=== PATIENT | female | born 1980 | race Caucasian/White ===

== ENCOUNTER 2018-04-30 10:57 | Observation (INO) ==
[2018-04-30 11:03] VITALS: O2SAT 100
--- NOTE | 2018-04-30 11:56 | ED ---
History of Present Illness Primary Care Physician: No Primary Care Physician Chief Complaint: abdominal pain and nausea History of Present Illness: 38 yo at 20 weeks who presents with abdominal pain and nausea. Patient just moved to the area from [place]. She reports that she has a history of pancreatitis and pyelonephritis in which she was hospitalized 1.5 months ago. She has not seen an OB provider since that hospitalization. She reports current alcohol use, denies drug use. She reports abdominal bloating, epigastric pain, frequent loose stools. She denies vaginal bleeding, leakage of fluid, contractions. She denies vaginal itching, dysuria. PMH: pancreatitis, pyelonephritis, alcohol abuse PSH: appendectomy, cholecystectomy Medications: pre- vitamins, ferrous sulfate Allergies: penicillin (rxn= throat swelling) Weeks Gestation:: 20 Para: 3 : 4 Review of Systems All other systems reviewed negative except as stated in HPI [facility] - History History Provided By: Patient - Social History I have reviewed the patient's Social History: Yes Medications and Allergies Active Medications: Active Medications Lactated Ringer's (Lr 1000 Ml Inj) 1,000 mls @ 0 mls/hr IV.SIG BOLUS ONE Stop: 04/30/18 11:52 Ondansetron HCl (Zofran Odt) 8 mg PO ONCE ONE Stop: 04/30/18 11:52 Allergies Allergy/AdvReac Type Severity Reaction Status Date / Time penicillin G Allergy Anaphylaxis Verified 04/30/18 11:47 Exam Vital signs: Vital Signs 04/30/18 11:03 Temperature 98.3 F Pulse Rate 102 H Respiratory Rate 20 Blood Pressure 163/75 H Pulse Oximetry 100 Intake & Output 04/29/18 04/30/18 04/30/18 18:59 06:59 18:59 Weight 59.874 kg Narrative: GENERAL: older than stated age, well-developed patient. SKIN: Warm and dry. HEAD: Normocephalic and atraumatic. EYES: No scleral icterus. No injection or drainage. ENT: No nasal drainage noted. Mucous membranes pink. Airway patent. NECK: Supple, trachea midline. No JVD. CARDIOVASCULAR: Regular rate and rhythm without murmurs, gallops, or rubs. RESPIRATORY: Breath sounds equal bilaterally. No accessory muscle use. ABDOMEN/GI: Abdomen soft, mid epigastric tenderness, CVA tenderness, bowel sounds present, no rebound, no guarding Gravid to 20 weeks size FHT's: 150s EXTREMITIES: No cyanosis or edema. BACK: Nontender without obvious deformity. No CVA tenderness. NEUROLOGICAL: Awake and alert. Normal speech. Results - Labs CBC & Chem 7: 04/30/18 12:15 04/30/18 12:15 Assessment and Plan - Diagnosis (1) Abdominal pain affecting Code(s): O26.899 - Other specified related conditions, unspecified trimester; R10.9 - Unspecified abdominal pain Status: Acute (2) History of pyelonephritis during Code(s): Z87.59 - Personal history of other complications of , childbirth and the puerperium; Z87.440 - Personal history of urinary (tract) infections Status: Acute (3) History of pancreatitis Code(s): Z87.19 - Personal history of other diseases of the digestive system Status: Acute - Plan 38 yo at 20 weeks with a recent history of pancreatitis and pyelonephritis who presents with abdominal pain, abdominal bloating, and nausea. FHT 150s. This is likely pancreatitis and pyelonephritis. -Amylase/Lipase- amylase slightly elevated at 141 and lipase WNL -CMP- mild hypokalemic at 3.3 -CBC- WNL -Urine analysis and culture -Urine drug screen -Alcohol level- less than 3 - panel -Limited OB US for EFW and JAMA -Admit to observation Medications - 1000 ml LR X 2 bolus - 8 mg Zofran ODT - 1000 mg IV acetaminophen Discharge Plan - Discharge Disposition Patient Disposition: 30 Still Patient - Discharge Condition Condition: Stable - Physicians Team ED Provider: Umm Fletcher Primary Care Provider: Primary Care Sarahi Lindsey - Rxs /Orders / Referrals /Forms Referrals: Primary Care Sarahi Lindsey [Primary Care Provider] - See Instructions - Discharge Instructions Print Language: Romansh
[2018-04-30 12:54] LABS: Hematocrit 36.6 % (35.0-46.0); Mean Corpuscular HGB Conc 32.8 % (32.0-36.0); Mean Corpuscular Hemoglobin 29.3 pg (27.0-34.0); Mean Corpuscular Volume 89.4 fL (80.0-100.0); Mean Platelet Volume 9.1 fL (7.0-11.0); Platelet Count 274 th/mm3 (150-450); Red Cell Distribution Width 16.2 % (11.6-17.2); White Blood Count 10.9 th/mm3 (4.0-11.0)
--- NOTE | 2018-04-30 13:07 | ED ---
History of Present Illness Primary Care Physician: No Primary Care Physician Chief Complaint: abdominal pain and nausea History of Present Illness: 38-year-old at 20 weeks. Presents complaining of midepigastric pain and low back pain. No care. Reports that she was seen in [place] about 1 month ago admitted times 12 days for pancreatitis and pyelonephritis history of alcohol use recent use admitted yesterday also history of delivery x1. Weeks Gestation:: 20 Para: 3 : 4 Review of Systems Constitutional: Reports weakness, Denies weight loss Eyes: Denies blind spots Ears, Nose, Mouth, and Throat: Denies difficulty swallowing Cardiovascular: Denies chest pain Gastrointestinal: Reports abdominal pain, Denies bright, red blood in stools, Denies change in bowel habits, Denies vomiting blood Genitourinary: Reports other (Low back pain), Denies abnormal vaginal bleeding Musculoskeletal: Denies back pain, Denies joint pain PMFSH - History History Provided By: Patient - Social History I have reviewed the patient's Social History: Yes - Alcohol History How Often Do You Have a Drink Containing Alcohol: Unable to Obtain (Positive for alcohol use however unable to obtain frequency) Medications and Allergies Active Medications: Active Medications Ondansetron HCl 8 mg/ Dextrose 54 mls @ 216 mls/hr IV.SIG Q6H PRN PRN Reason: NAUSEA OR VOMITING Allergies Allergy/AdvReac Type Severity Reaction Status Date / Time penicillin G Allergy Anaphylaxis Verified 04/30/18 11:47 Exam Vital signs: Vital Signs 04/30/18 11:03 04/30/18 11:37 04/30/18 11:45 Temperature 98.3 F 98.7 F Pulse Rate 102 H 106 H Respiratory Rate 20 18 Blood Pressure 163/75 H 141/86 H Pulse Oximetry 100 Intake & Output 04/29/18 04/30/18 04/30/18 18:59 06:59 18:59 Weight 59.874 kg - Constitutional mild distress, moderate distress - Routine HEENT Exam Head: Present: normocephalic Eye: Present: PERRL ENT: Present: mucous membranes moist - Routine Neck Exam Present: supple - Routine Chest/Breast/Axilla Exam Chest wall: Absent: tenderness - Routine Respiratory Exam Present: CTA bilaterally - Routine Cardiovascular Exam Present: RRR - Routine Abdominal Exam Present: soft, tenderness (Midepigastric tenderness positive for CVA tenderness right side) - Routine Extremities Exam Absent: cyanosis, calf tenderness, pallor - Routine Skin Exam Present: intact - Routine Neurological Exam Present: alert, oriented X3 Results - Labs CBC & Chem 7: 04/30/18 12:15 04/30/18 12:15 Labs: Laboratory Results - last 24 hr 04/30/18 12:15 WBC 10.9 RBC 4.10 Hgb 12.0 Hct 36.6 MCV 89.4 MCH 29.3 MCHC 32.8 RDW 16.2 Plt Count 274 MPV 9.1 Assessment and Plan - Diagnosis (1) Abdominal pain affecting Code(s): O26.899 - Other specified related conditions, unspecified trimester; R10.9 - Unspecified abdominal pain Status: Acute (2) History of pancreatitis Code(s): Z87.19 - Status: Acute (3) History of pyelonephritis during Code(s): Z87.59 - ; Z87.440 - Status: Acute (4) 20 weeks gestation of Code(s): Z3A.20 - Status: Acute Discharge Plan - Physicians Team ED Provider: Umm Fletcher Primary Care Provider: Primary Care César,No - Discharge Instructions Print Language: Kinyarwanda
[2018-04-30 13:09] LABS: Alanine Aminotransferase 21 U/L (10-53); Anion Gap 11 meq/L (5-15); Aspartate Aminotransferase 21 U/L (15-37); Blood Urea Nitrogen 9 mg/dL (7-18); Calcium 8.2 mg/dL (8.5-10.1); Carbon Dioxide 23.7 meq/L (21.0-32.0); Chloride 107 meq/L (98-107); Glomerular Filtration Rate Greater Than 89 mL/min (>89); Glucose,Random 81 mg/dL (74-106); Lipase 128 U/L (73-393); Potassium 3.3 meq/L (3.5-5.1); Sodium 142 meq/L (136-145)
[2018-04-30 13:11] LABS: Alkaline Phosphatase 77 U/L (45-117); Amylase 141 U/L (25-115); Total Protein 7.6 g/dL (6.4-8.2)
[2018-04-30 13:35] LABS: Hepatitits B Surface Antigen Nonreactive (Nonreactive)
[2018-04-30 14:01] LABS: Hepatitis A IgM Antibody Nonreactive (Nonreactive)
[2018-04-30 15:42] LABS: Bacteria,Urine Occasional /hpf; Bilirubin,Urine Negative (Negative); Color,Urine Yellow (Yellw/Straw); Glucose,Urine (UA) Negative (Negative); Hyaline Casts,Urine 1 /lpf (0-3); Leukocyte Esterase,Urine Small (Negative); Mucus,Urine Few /lpf (Occasional); Nitrite,Urine Negative (Negative); Specific Gravity,Urine 1.021 (1.002-1.035); Squamous Epithelial Cell,Urine 16 /hpf (0-5)
[2018-04-30] MEDS ORDERED: Citric Acid/Sodium Citrate Liq 30 ML UDC PO SCH (15:45)
--- NOTE | 2018-04-30 15:46 | P.OBGPN ---
OB - ED Note Patient Name: Tiara Portillo Date of : 78 Patient Status: Emergency Emergency Provider: Umm Fletcher Date: 04/30/18 11:54 Initialization Date: 04/30/18 11:54 History of Present Illness Primary Care Physician: No Primary Care Physician Chief Complaint: abdominal pain and nausea History of Present Illness: 38 yo at 20 weeks who presents with abdominal pain and nausea. Patient just moved to the area from [place]. She reports that she has a history of pancreatitis and pyelonephritis in which she was hospitalized 1.5 months ago. She has not seen an OB provider since that hospitalization. She reports current alcohol use, denies drug use. She reports abdominal bloating, epigastric pain, frequent loose stools. She denies vaginal bleeding, leakage of fluid, contractions. She denies vaginal itching, dysuria. PMH: pancreatitis, pyelonephritis, alcohol abuse PSH: appendectomy, cholecystectomy Medications: pre-marisa vitamins, ferrous sulfate Allergies: penicillin (rxn= throat swelling) Weeks Gestation:: 20 Para: 3 : 4 Review of Systems All other systems reviewed negative except as stated in HPI PMFSH - History History Provided By: Patient - Social History I have reviewed the patient's Social History: Yes Medications and Allergies Active Medications: Active Medications Lactated Ringer's (Lr 1000 Ml Inj) 1,000 mls @ 0 mls/hr IV.SIG BOLUS ONE Stop: 04/30/18 11:52 Ondansetron HCl (Zofran Odt) 8 mg PO ONCE ONE Stop: 04/30/18 11:52 Allergies Allergy/AdvReac Type Severity Reaction Status Date / Time penicillin G Allergy Anaphylaxis Verified 04/30/18 11:47 Exam Vital signs: Vital Signs 04/30/18 11:03 Temperature 98.3 F Pulse Rate 102 H Respiratory Rate 20 Blood Pressure 163/75 H Pulse Oximetry 100 Intake & Output 04/29/18 04/30/18 04/30/18 18:59 06:59 18:59 Weight 59.874 kg Narrative: GENERAL: older than stated age, well-developed patient. SKIN: Warm and dry. HEAD: Normocephalic and atraumatic. EYES: No scleral icterus. No injection or drainage. ENT: No nasal drainage noted. Mucous membranes pink. Airway patent. NECK: Supple, trachea midline. No JVD. CARDIOVASCULAR: Regular rate and rhythm without murmurs, gallops, or rubs. RESPIRATORY: Breath sounds equal bilaterally. No accessory muscle use. ABDOMEN/GI: Abdomen soft, mid epigastric tenderness, CVA tenderness, bowel sounds present, no rebound, no guarding Gravid to 20 weeks size FHT's: 150s EXTREMITIES: No cyanosis or edema. BACK: Nontender without obvious deformity. No CVA tenderness. NEUROLOGICAL: Awake and alert. Normal speech. Results - Labs CBC & Chem 7: 04/30/18 12:15 04/30/18 12:15 Assessment and Plan - Diagnosis (1) Abdominal pain affecting Code(s): O26.899 - Other specified related conditions, unspecified trimester; R10.9 - Unspecified abdominal pain Status: Acute (2) History of pyelonephritis during Code(s): Z87.59 - Personal history of other complications of , childbirth and the puerperium; Z87.440 - Personal history of urinary (tract) infections Status: Acute (3) History of pancreatitis Code(s): Z87.19 - Personal history of other diseases of the digestive system Status: Acute - Plan 38 yo at 20 weeks with a recent history of pancreatitis and pyelonephritis who presents with abdominal pain, abdominal bloating, and nausea. FHT 150s. Patient will be admitted for pyelonephritis and fluid resuscitation. OB ED Course -Amylase/Lipase- amylase slightly elevated at 141 and lipase WNL -CMP- mild hypokalemic at 3.3 -CBC- WNL -Urine culture- PENDING -Urine drug screen- PENDING -Alcohol level- less than 3 - panel -Limited OB US for EFW and JAMA Admit to observation- Patient has continued nausea and pain so patient will be managed as observation with IV abx for probable pyelonephritis and fluid resuscitation. -NPO diet -FHT daily during admission Medications -LR at 125 ml/hour -50 mg benadryl Q6H -ondansetron 8mg Q6h -1000 mg IV acetaminophen Q6H -Ampicillin 2000 mg Q8H -Gentamicin 80 mg Q8H Discharge Plan - Discharge Disposition Patient Disposition: 30 Still Patient - Discharge Condition Condition: Stable - Physicians Team ED Provider: Umm Fletcher Primary Care Provider: Primary Care Sarahi Lindsey - Rxs /Orders / Referrals /Forms Referrals: Primary Care Sarahi Lindsey [Primary Care Provider] - See Instructions - Discharge Instructions Print Language: Latvian
[2018-04-30 15:48] LABS: Clarity,Urine Hazy (Clear)
[2018-04-30] MEDS: Gentamicin/NS 80 mg Premix 100 ML IV.SIG SCH ×2 (16:25→23:03)
[2018-04-30 17:50] LABS: Amphetamine Screen,Urine Neg (Neg); Barbiturate Screen,Urine Neg (Neg); Cannabinoid Screen,Urine Neg (Neg); Cocaine Screen,Urine Neg (Neg)
[2018-04-30 18:06] LABS: Opiate Screen,Urine Neg (Neg)
--- NOTE | 2018-04-30 18:14 | P.HPOB ---
History of Present Illness Primary Care Physician: No Primary Care Physician Chief Complaint: abdominal pain and nausea History of Present Illness: This is a 38-year-old at 20+ weeks gestation who presents today complaining of midepigastric pain and right low back pain. care is limited last visit was in [place] however this was an admission treated for pancreatitis and pyelonephritis. Patient reports that she was in the hospital for 12 days. Admits to recent use of alcohol yesterday also history of delivery. Weeks Gestation:: 20 Para: 3 : 4 Review of Systems Constitutional: Reports body ache(s) Eyes: Denies blind spots Ears, Nose, Mouth, and Throat: Denies difficulty swallowing Cardiovascular: Denies chest pain Respiratory: Denies wheezing Gastrointestinal: Reports abdominal pain (Midepigastric and right low back pain) Genitourinary: Denies abnormal vaginal bleeding, Denies vaginal odor, Denies vaginal itching PMFSH - History History Provided By: Patient - Alcohol History How Often Do You Have a Drink Containing Alcohol: Unable to Obtain (Positive for alcohol use however unable to obtain frequency) Medications and Allergies Active Medications: Active Medications Diphenhydramine HCl (Benadryl Inj) 50 mg IV.PUSH Q6H PRN PRN Reason: Nausea/pain Last Admin: 04/30/18 16:25 Dose: 50 mg Ondansetron HCl 8 mg/ Dextrose 54 mls @ 216 mls/hr IV.SIG Q6H PRN PRN Reason: NAUSEA OR VOMITING Lactated Ringer's (Lr 1000 Ml Inj) 1,000 mls @ 125 mls/hr IV.CONT .Q8H IKE Last Admin: 04/30/18 17:07 Dose: Not Given Ampicillin Sodium 2,000 mg/ (Sodium Chloride) 100 mls @ 400 mls/hr IV.SIG Q6H IKE Last Admin: 04/30/18 17:21 Dose: 400 mls/hr Gentamicin Sulfate/Sodium Chloride (Gentamicin/Ns 80 Mg Premix) 100 mls @ 200 mls/hr IV.SIG Q8H IKE Last Infusion: 04/30/18 17:05 Dose: 200 mls/hr Acetaminophen (Ofirmev Inj) 1,000 mg in 100 mls @ 400 mls/hr IV.SIG Q6H PRN PRN Reason: PAIN SCALE 1 TO 10 Ibuprofen (Motrin) 600 mg PO Q6H PRN PRN Reason: Acute Pain Allergies Allergy/AdvReac Type Severity Reaction Status Date / Time penicillin G Allergy Anaphylaxis Verified 04/30/18 11:47 Home Medications Medication Instructions Recorded Confirmed Type ferrous sulfate [iron] 325 mg PO DAILY 04/30/18 04/30/18 History [id number] acid 1 tab PO DAILY 04/30/18 04/30/18 History [PreNata] Exam Vital signs: Vital Signs 04/30/18 11:03 04/30/18 11:37 04/30/18 11:45 Temperature 98.3 F 98.7 F Pulse Rate 102 H 106 H Respiratory Rate 20 18 Blood Pressure 163/75 H 141/86 H Pulse Oximetry 100 Intake & Output 04/29/18 04/30/18 04/30/18 18:59 06:59 18:59 Intake Total 1100 / 1100 Balance 1100 / 1100 Weight 59.874 kg Intake: IV 1100 / 1100 Ofirmev Inj 1,000 mg In 100 ml 100 / 100 @ 400 mls/hr IV.SIG ONCE ONE Rx #:[id number] Gentamicin/NS 80 mg Premix 100 0 / 0 ML @ 200 mls/hr IV.SIG Q8H IKE Rx#:[id number] LR 1000 mL Inj 1,000 ML @ 3000 1000 / 1000 mls/hr IV.SIG UNSCH PRN Rx#: [id number] - Constitutional mild distress, moderate distress - Routine HEENT Exam Head: Present: normocephalic Eye: Present: PERRL ENT: Present: mucous membranes moist - Routine Neck Exam Present: supple - Routine Chest/Breast/Axilla Exam Chest wall: Absent: tenderness Breast: Absent: tenderness Axillae: Absent: lymphadenopathy - Routine Respiratory Exam Present: CTA bilaterally - Routine Cardiovascular Exam Present: RRR - Routine Abdominal Exam Present: soft, tenderness (No midepigastric tenderness however right CVA tenderness is appreciated) - Routine Skin Exam Present: intact - Routine Neurological Exam Present: alert, oriented X3 Results - Labs CBC & Chem 7: 04/30/18 12:15 04/30/18 12:15 Labs: Laboratory Results - last 24 hr 04/30/18 04/30/18 04/30/18 11:36 11:36 11:36 WBC RBC Hgb Hct MCV MCH MCHC RDW Plt Count MPV Sodium Potassium Chloride Carbon Dioxide Anion Gap BUN Creatinine Estimated GFR Random Glucose Calcium Total Bilirubin AST ALT Alkaline Phosphatase Total Protein Albumin Amylase Lipase Urine Color Yellow Urine Clarity Hazy H Urine pH 6.0 Ur Specific Weston 1.021 Urine Protein 100 H Urine Glucose (UA) Negative Urine Ketones 20 Urine Occult Blood Negative Urine Nitrate Negative Urine Bilirubin Negative Urine Urobilinogen Less than 2 Ur Leukocyte Esterase Small H Urine RBC 2 Urine WBC 12 H Ur Squamous Epith Cells 16 Urine Bacteria Occasional H Hyaline Casts 1 Urine Mucus Few H Micro UA Comment Culture indicated Ur Microscopic Review Not Reportable Urine Culture Comments Culture indicated Urine Opiates Screen Neg Ur Barbiturates Screen Neg Ur Amphetamines Screen Neg U Benzodiazepines Scrn Neg Urine Cocaine Screen Neg U Cannabinoids Screen Neg Serum Alcohol Chlam trachomat DNA PCR Not detected Hepatitis A IgM Ab Hep Bs Antigen Hep B Core IgM Ab Hep C IgG Ab HIV 1&2 Ab/P24 Ag 4thGn N.gonorrhoeae DNA (PCR) Not detected Rubella Immunity Screen Rubella Ab, Quant Blood Type Blood Type Recheck Antibody Screen 04/30/18 04/30/18 04/30/18 12:15 12:15 12:15 WBC 10.9 RBC 4.10 Hgb 12.0 Hct 36.6 MCV 89.4 MCH 29.3 MCHC 32.8 RDW 16.2 Plt Count 274 MPV 9.1 Sodium 142 Potassium 3.3 L Chloride 107 Carbon Dioxide 23.7 Anion Gap 11 BUN 9 Creatinine 0.61 Estimated GFR Greater than 89 Random Glucose 81 Calcium 8.2 L Total Bilirubin 0.5 AST 21 ALT 21 Alkaline Phosphatase 77 Total Protein 7.6 Albumin 3.0 L Amylase 141 H Lipase 128 Urine Color Urine Clarity Urine pH Ur Specific Weston Urine Protein Urine Glucose (UA) Urine Ketones Urine Occult Blood Urine Nitrate Urine Bilirubin Urine Urobilinogen Ur Leukocyte Esterase Urine RBC Urine WBC Ur Squamous Epith Cells Urine Bacteria Hyaline Casts Urine Mucus Micro UA Comment Ur Microscopic Review Urine Culture Comments Urine Opiates Screen Ur Barbiturates Screen Ur Amphetamines Screen U Benzodiazepines Scrn Urine Cocaine Screen U Cannabinoids Screen Serum Alcohol Less than 3 Chlam trachomat DNA PCR Hepatitis A IgM Ab Hep Bs Antigen Hep B Core IgM Ab Hep C IgG Ab HIV 1&2 Ab/P24 Ag 4thGn N.gonorrhoeae DNA (PCR) Rubella Immunity Screen Immune Rubella Ab, Quant 440.3 Blood Type Blood Type Recheck Antibody Screen 04/30/18 04/30/18 12:15 12:15 WBC RBC Hgb Hct MCV MCH MCHC RDW Plt Count MPV Sodium Potassium Chloride Carbon Dioxide Anion Gap BUN Creatinine Estimated GFR Random Glucose Calcium Total Bilirubin AST ALT Alkaline Phosphatase Total Protein Albumin Amylase Lipase Urine Color Urine Clarity Urine pH Ur Specific Weston Urine Protein Urine Glucose (UA) Urine Ketones Urine Occult Blood Urine Nitrate Urine Bilirubin Urine Urobilinogen Ur Leukocyte Esterase Urine RBC Urine WBC Ur Squamous Epith Cells Urine Bacteria Hyaline Casts Urine Mucus Micro UA Comment Ur Microscopic Review Urine Culture Comments Urine Opiates Screen Ur Barbiturates Screen Ur Amphetamines Screen U Benzodiazepines Scrn Urine Cocaine Screen U Cannabinoids Screen Serum Alcohol Chlam trachomat DNA PCR Hepatitis A IgM Ab Nonreactive Hep Bs Antigen Nonreactive Hep B Core IgM Ab Nonreactive Hep C IgG Ab Nonreactive HIV 1&2 Ab/P24 Ag 4thGn Nonreactive N.gonorrhoeae DNA (PCR) Rubella Immunity Screen Rubella Ab, Quant Blood Type A Negative Blood Type Recheck Required Antibody Screen Negative Caprini VTE Risk Assessment Caprini VTE Risk Assessment: No/Low Risk (score <= 1) Caprini Risk Assessment Model: Point Value = 1 Point Value = 2 Point Value = 3 Point Value = 5 Age 41-60 Minor surgery BMI > 25 kg/m2 Swollen legs Varicose veins or History of unexplained or recurrent spontaneous Oral contraceptives or hormone replacement Sepsis (< 1 month) Serious lung disease, including pneumonia (< 1 month) Abnormal pulmonary function Acute myocardial infarction Congestive heart failure (< 1 month) History of inflammatory bowel disease Medical patient at bed rest Age 61-74 Arthroscopic surgery Major open surgery (> 45 min) Laparoscopic surgery (> 45 min) Malignancy Confined to bed (> 72 hours) Immobilizing plaster cast Central venous access Age >= 75 History of VTE Family history of VTE Factor V Leiden Prothrombin 42410H Lupus anticoagulant Anticardiolipin antibodies Elevated serum homocysteine Heparin-induced thrombocytopenia Other congenital or acquired thrombophilia Stroke (< 1 month) Elective arthroplasty Hip, pelvis, or leg fracture Acute spinal cord injury (< 1 month) Prophylaxis Regimen: Total Risk Factor Score Risk Level Prophylaxis Regimen 0-1 Low Early ambulation 2 Moderate Order ONE of the following: *Sequential Compression Device (SCD) *Heparin 5000 units SQ BID 3-4 Higher Order ONE of the following medications: *Heparin 5000 units SQ TID *Enoxaparin/Lovenox 40 mg SQ daily (WT < 150 kg, CrCl > 30 mL/min) *Enoxaparin/Lovenox 30 mg SQ daily (WT < 150 kg, CrCl > 10-29 mL/min) *Enoxaparin/Lovenox 30 mg SQ BID (WT < 150 kg, CrCl > 30 mL/min) AND/OR *Sequential Compression Device (SCD) 5 or more Highest Order ONE of the following medications: *Heparin 5000 units SQ TID (Preferred with Epidurals) *Enoxaparin/Lovenox 40 mg SQ daily (WT < 150 kg, CrCl > 30 mL/min) *Enoxaparin/Lovenox 30 mg SQ daily (WT < 150 kg, CrCl > 10-29 mL/min) *Enoxaparin/Lovenox 30 mg SQ BID (WT < 150 kg, CrCl > 30 mL/min) AND *Sequential Compression Device (SCD) Assessment and Plan - Diagnosis (1) Pyelonephritis affecting in second trimester Code(s): O23.02 - Infections of kidney in , second trimester Status: Suspected (2) Abdominal pain affecting Code(s): O26.899 - Other specified related conditions, unspecified trimester; R10.9 - Unspecified abdominal pain Status: Acute (3) History of pancreatitis Code(s): Z87.19 - Personal history of other diseases of the digestive system Status: Resolved (4) History of pyelonephritis during Code(s): Z87.59 - Personal history of other complications of , childbirth and the puerperium; Z87.440 - Personal history of urinary (tract) infections Status: Resolved (5) 20 weeks gestation of Code(s): Z3A.20 - 20 weeks gestation of Status: Acute - Plan Admit. IV fluid/antibiotic. Ultrasound performed heart tones intermittent Patient still complaining of pain after receiving 1000 of acetaminophen and Benadryl IV will placed on a short trial of NSAIDs. Since she is 20 weeks.
[2018-04-30] MEDS ORDERED: Ibuprofen 600 MG Tablet PO PRN (19:00)
[2018-05-01] MEDS: Gentamicin/NS 80 mg Premix 100 ML IV.SIG SCH (07:00)
[2018-05-01 08:42] VITALS: RESP 18; TEMP 98.2
[2018-05-01 08:44] VITALS: BP 121/78; PULSE 75
--- NOTE | 2018-05-01 09:17 | P.OBANTE ---
Subjective Interval History: 38 yo at 20 weeks with a recent history of pancreatitis and pyelonephritis who presents with abdominal pain, abdominal bloating, and nausea. Patient reports that she is feeling better this morning not vomited since yesterday. She still has dry heaving. She also reports back pain but improved since yesterday. She is tolerating her diet. Antepartum ROS: Denies: New complaints, Loss of fluid, Vaginal bleeding, Contractions Objective Vital Signs and I&O: Vital Signs 04/30/18 11:03 04/30/18 11:37 04/30/18 11:45 Temperature 98.3 F 98.7 F Pulse Rate 102 H 106 H Respiratory Rate 20 18 Blood Pressure 163/75 H 141/86 H Pulse Oximetry 100 04/30/18 20:00 04/30/18 20:02 05/01/18 02:20 Temperature 98.6 F Pulse Rate 88 64 Respiratory Rate 18 16 Blood Pressure 125/78 100/60 Pulse Oximetry 05/01/18 08:42 Temperature 98.2 F Pulse Rate 75 Respiratory Rate 18 Blood Pressure 121/78 Pulse Oximetry Intake & Output 04/30/18 05/01/18 05/01/18 18:59 06:59 18:59 Intake Total 1300 / 1300 200 / 200 Balance 1300 / 1300 200 / 200 Weight 59.874 kg Intake: IV 1300 / 1300 200 / 200 Ofirmev Inj 1,000 mg In 100 ml 100 / 100 @ 400 mls/hr IV.SIG ONCE ONE Rx #:[id number] Ampicillin Inj 2,000 MG In NS 100 / 100 100 / 100 Inj 100 ML @ 400 mls/hr IV.SIG Q6H IKE Rx#:[id number] Gentamicin/NS 80 mg Premix 100 100 / 100 100 / 100 ML @ 200 mls/hr IV.SIG Q8H IKE Rx#:[id number] LR 1000 mL Inj 1,000 ML @ 3000 1000 / 1000 mls/hr IV.SIG UNSCH PRN Rx#: [id number] Lab and Micro Results: Laboratory Results - last 24 hr 04/30/18 04/30/18 04/30/18 11:36 11:36 11:36 WBC RBC Hgb Hct MCV MCH MCHC RDW Plt Count MPV Sodium Potassium Chloride Carbon Dioxide Anion Gap BUN Creatinine Estimated GFR Random Glucose Calcium Total Bilirubin AST ALT Alkaline Phosphatase Total Protein Albumin Amylase Lipase Urine Color Yellow Urine Clarity Hazy H Urine pH 6.0 Ur Specific [place] 1.021 Urine Protein 100 H Urine Glucose (UA) Negative Urine Ketones 20 Urine Occult Blood Negative Urine Nitrate Negative Urine Bilirubin Negative Urine Urobilinogen Less than 2 Ur Leukocyte Esterase Small H Urine RBC 2 Urine WBC 12 H Ur Squamous Epith Cells 16 Urine Bacteria Occasional H Hyaline Casts 1 Urine Mucus Few H Micro UA Comment Culture indicated Ur Microscopic Review Not Reportable Urine Culture Comments Culture indicated Urine Opiates Screen Neg Ur Barbiturates Screen Neg Ur Amphetamines Screen Neg U Benzodiazepines Scrn Neg Urine Cocaine Screen Neg U Cannabinoids Screen Neg Serum Alcohol Chlam trachomat DNA PCR Not detected Hepatitis A IgM Ab Hep Bs Antigen Hep B Core IgM Ab Hep C IgG Ab HIV 1&2 Ab/P24 Ag 4thGn N.gonorrhoeae DNA (PCR) Not detected Rubella Immunity Screen Rubella Ab, Quant Blood Type Blood Type Recheck Antibody Screen 04/30/18 04/30/18 04/30/18 12:15 12:15 12:15 WBC 10.9 RBC 4.10 Hgb 12.0 Hct 36.6 MCV 89.4 MCH 29.3 MCHC 32.8 RDW 16.2 Plt Count 274 MPV 9.1 Sodium 142 Potassium 3.3 L Chloride 107 Carbon Dioxide 23.7 Anion Gap 11 BUN 9 Creatinine 0.61 Estimated GFR Greater than 89 Random Glucose 81 Calcium 8.2 L Total Bilirubin 0.5 AST 21 ALT 21 Alkaline Phosphatase 77 Total Protein 7.6 Albumin 3.0 L Amylase 141 H Lipase 128 Urine Color Urine Clarity Urine pH Ur Specific [place] Urine Protein Urine Glucose (UA) Urine Ketones Urine Occult Blood Urine Nitrate Urine Bilirubin Urine Urobilinogen Ur Leukocyte Esterase Urine RBC Urine WBC Ur Squamous Epith Cells Urine Bacteria Hyaline Casts Urine Mucus Micro UA Comment Ur Microscopic Review Urine Culture Comments Urine Opiates Screen Ur Barbiturates Screen Ur Amphetamines Screen U Benzodiazepines Scrn Urine Cocaine Screen U Cannabinoids Screen Serum Alcohol Less than 3 Chlam trachomat DNA PCR Hepatitis A IgM Ab Hep Bs Antigen Hep B Core IgM Ab Hep C IgG Ab HIV 1&2 Ab/P24 Ag 4thGn N.gonorrhoeae DNA (PCR) Rubella Immunity Screen Immune Rubella Ab, Quant 440.3 Blood Type Blood Type Recheck Antibody Screen 04/30/18 04/30/18 12:15 12:15 WBC RBC Hgb Hct MCV MCH MCHC RDW Plt Count MPV Sodium Potassium Chloride Carbon Dioxide Anion Gap BUN Creatinine Estimated GFR Random Glucose Calcium Total Bilirubin AST ALT Alkaline Phosphatase Total Protein Albumin Amylase Lipase Urine Color Urine Clarity Urine pH Ur Specific [place] Urine Protein Urine Glucose (UA) Urine Ketones Urine Occult Blood Urine Nitrate Urine Bilirubin Urine Urobilinogen Ur Leukocyte Esterase Urine RBC Urine WBC Ur Squamous Epith Cells Urine Bacteria Hyaline Casts Urine Mucus Micro UA Comment Ur Microscopic Review Urine Culture Comments Urine Opiates Screen Ur Barbiturates Screen Ur Amphetamines Screen U Benzodiazepines Scrn Urine Cocaine Screen U Cannabinoids Screen Serum Alcohol Chlam trachomat DNA PCR Hepatitis A IgM Ab Nonreactive Hep Bs Antigen Nonreactive Hep B Core IgM Ab Nonreactive Hep C IgG Ab Nonreactive HIV 1&2 Ab/P24 Ag 4thGn Nonreactive N.gonorrhoeae DNA (PCR) Rubella Immunity Screen Rubella Ab, Quant Blood Type A Negative Blood Type Recheck Required Antibody Screen Negative Physical Exam: GENERAL: Well-nourished, well-developed patient. CARDIOVASCULAR: Regular rate and rhythm without murmurs, gallops, or rubs. RESPIRATORY: Breath sounds equal bilaterally. No accessory muscle use. ABDOMEN/GI: Abdomen soft, non-tender. GENITOURINARY: FHT's: 150s EXTREMITIES: No cyanosis or edema, non-tender, without signs of DVT. Assessment and Plan - Diagnosis (1) Pyelonephritis affecting Code(s): O23.00 - Infections of kidney in , unspecified trimester Status: Acute (2) Abdominal pain affecting Code(s): O26.899 - Other specified related conditions, unspecified trimester; R10.9 - Unspecified abdominal pain Status: Acute (3) History of pyelonephritis during Code(s): Z87.59 - Personal history of other complications of , childbirth and the puerperium; Z87.440 - Personal history of urinary (tract) infections Status: Resolved (4) History of pancreatitis Code(s): Z87.19 - Personal history of other diseases of the digestive system Status: Resolved - Plan Assessment and plan: Patient is tolerating her diet. Her pain is improved with fluid resuscitation, antibiotic treatment and a short course of NSAIDs. -Patient prescribed a short course of NSAIDs since she is 20 weeks. Ibuprofen 600 mg every 6 for 5 days -Patient to continue ampicillin 500 mg 4 times daily x 10 days -Continue Flagyl 500 mg twice daily x 10 days -Phenergan 25 mg every 6 hours as needed for nausea -Instructed patient to follow-up with her OB provider this week -Patient will be discharged today
[2018-05-01] MEDS ORDERED: Gentamicin/NS 80 mg Premix 100 ML IV.SIG SCH (15:00)
== END 2018-05-01 12:12 | disposition home or self-care (01) ==
LOC: H2E 10:57 → HOBED 10:57 → H2E 16:39
PROVIDERS: ADMIT Obstetrics & Gynecology; ATTEND Obstetrics & Gynecology

== ENCOUNTER 2018-08-08 15:03 | Inpatient (IN) ==
[2018-08-08] MEDS ORDERED: Mag Sulf/Water 4 gm/100 ml 100 ML IV.SIG ONE (16:02)
[2018-08-08] MEDS ORDERED: Acetaminophen 325 MG Tablet PO PRN (16:02)
[2018-08-08] MEDS ORDERED: Labetalol HCl Inj 100 MG/20 ML Vial IV.PUSH PRN ×3 (16:02→16:23)
[2018-08-08] MEDS ORDERED: hydrALAZINE HCl Inj 20 MG/ML Vial IV.PUSH PRN ×2 (16:02→16:23)
[2018-08-08] MEDS ORDERED: Naloxone Inj 0.4 MG/ML Vial IV.PUSH PRN (16:05)
[2018-08-08] MEDS ORDERED: Betamethasone Sod Phos/Acetate Inj 30 MG/5 ML Vial IM SCH (16:15)
[2018-08-08] MEDS ORDERED: NIFEdipine 10 MG Capsule PO ONE (16:16)
[2018-08-08] MEDS: Morphine Inj 4 MG/ML Vial IV.PUSH PRN ×3 (16:42→23:21)
[2018-08-08 16:56] LABS: Baso % (Auto) 0.4 % (0.0-2.0); Eos # (Auto) 0.1 th/mm3 (0.0-0.4); Eos % (Auto) 0.7 % (0.0-4.0); Hematocrit 34.8 % (35.0-46.0); Hemoglobin 12.2 gm/dL (11.6-15.3); Lymph # (Auto) 1.7 th/mm3 (1.0-4.8); Lymph % (Auto) 16.2 % (9.0-44.0); Mean Corpuscular Hemoglobin 29.7 pg (27.0-34.0); Mean Corpuscular Volume 84.9 fL (80.0-100.0); Mean Platelet Volume 10.3 fL (7.0-11.0); Mono # (Auto) 0.8 th/mm3 (0.0-0.9); Mono % (Auto) 7.3 % (0.0-8.0); Neut # (Auto) 7.8 th/mm3 (1.8-7.7); Neut % (Auto) 75.4 % (16.0-70.0); Platelet Count 198 th/mm3 (150-450); Red Cell Distribution Width 14.9 % (11.6-17.2); White Blood Count 10.3 th/mm3 (4.0-11.0)
--- NOTE | 2018-08-08 17:20 | US ---
EXAM DATE: 08/08/2018 5:01 PM EST AGE/SEX: 38 years / Female INDICATIONS: Flank pain. CLINICAL DATA: This is the patient's initial encounter. Patient reports that signs and symptoms have been present for 2 days and indicates a pain score of 2/10. MEDICAL/SURGICAL HISTORY: . Flank pain. None. COMPARISON: No prior exams available for comparison. MEASUREMENTS: Right Kidney:__11.7 x 4.8 x 4.5 cm Left Kidney:__12.9 x 4.5 x 5.3 cm FINDINGS: Right Kidney: Normal echogenicity and cortical thickness. No mass or hydronephrosis. Left Kidney: Normal echogenicity and cortical thickness. No mass or hydronephrosis. Bladder: Decompressed. Not well evaluated. Other: None. CONCLUSION: 1. Negative renal sonogram. Electronically signed by: Mc Paniagua MD Board Certified Radiologist 08/08/2018 5:18 PM EST
[2018-08-08] MEDS: Mag Sulf/Water 40 gm/1000 ml 40 GM/1,000 ML BAG IV.CONT SCH (17:43)
[2018-08-08 17:47] LABS: Alanine Aminotransferase 17 U/L (10-53); Alkaline Phosphatase 131 U/L (45-117); Total Protein 6.8 g/dL (6.4-8.2)
[2018-08-08 17:49] LABS: Albumin 2.2 g/dL (3.4-5.0); Anion Gap 6 meq/L (5-15); Aspartate Aminotransferase 29 U/L (15-37); Blood Urea Nitrogen 9 mg/dL (7-18); Calcium 8.3 mg/dL (8.5-10.1); Carbon Dioxide 24.2 meq/L (21.0-32.0); Chloride 110 meq/L (98-107); Glomerular Filtration Rate Greater Than 89 mL/min (>89); Glucose,Random 79 mg/dL (74-106); Sodium 140 meq/L (136-145)
[2018-08-08 17:50] LABS: Potassium 4.4 meq/L (3.5-5.1)
[2018-08-08] MEDS ORDERED: Clindamycin 900 mg/NS Premix 900 MG/50 ML PIGGYBACK IV.SIG SCH (18:00)
[2018-08-08 18:12] LABS: Amorphous Sediment,Urine Rare /hpf; Bilirubin,Urine Negative (Negative); Clarity,Urine Cloudy (Clear); Color,Urine Amber (Yellw/Straw); Glucose,Urine (UA) 50 mg/dL (Negative); Leukocyte Esterase,Urine Negative (Negative); Mucus,Urine Moderate /lpf (Occasional); Nitrite,Urine Negative (Negative); Squamous Epithelial Cell,Urine 12 /hpf (0-5)
[2018-08-09] MEDS: Morphine Inj 4 MG/ML Vial IV.PUSH PRN (06:00)
--- NOTE | 2018-08-09 06:33 | P.HPOB ---
Patient Name: Tiara Portillo Date of : 78 Patient Status: Observation Attending Provider: Cristobal Renteria Date: 08/08/18 15:50 Initialization Date: 08/08/18 15:50 History of Present Illness Primary Care Physician: NOT REQUIRED Chief Complaint: left flank pain History of Present Illness: Patient is a 38 year old at 34/5 by [US at 20.3weeks], FELIX [09/14/2018], who presents to the OB ED with left flank pain. States that she first developed the left-sided 7/10 flank pain on Monday when she woke up feeling ill. States that she had nausea and vomiting after eating. Pain is worse with moving. Has not taken anything for the pain because she is not able to swallow anything. This is due to nausea. Also has increased urgency and frequency of urination. Pain develops after urination as well. Has a history of recurrent UTIs that gradually resolved a year and a half ago. However, last UTI was 6 months ago-at the time she was hospitalized for pancreatitis. Is not sure which antibiotic she was taking at the time. She denies leakage of fluid, vaginal bleeding, and contractions. She feels baby moving regularly. She denies headache, shortness of breath, vision changes, right upper quadrant pain. Endorses hematuria. OB care is with Dr. Walhs. BP 187/119, 178/113, 192/97 on admission. Urine dipstick shows protein >300 and large blood. No abnormalities or complications during per patient. Last ultrasound was 07/16/2018 and showed SGA 12%. JAMA was within normal limits at 19.3 cm, BPP 8/8. With a history of elevated blood pressure first recorded 26 weeks and 6 days into . Blood pressure was greater than 141/82 afterwards. Medical history: None. Also denies history of hypertension. Past surgical history: Appendectomy Cholecystectomy Previous deliveries: 10/10/1999, at 39 weeks, weight 7 pounds 4 ounces, full-term 10/19/2011, at 39 weeks, 7 pounds 5 ounces, vaginal delivery, full-term 05/13/2015, at 32 weeks, 4 pounds, vaginal delivery, premature No complications associated with the above Social history: No tobacco or alcohol use, no illicit or recreational drug use Family history: Noncontributory Review of Systems All other systems reviewed negative except as stated in [facility]PI [facility] - History History Provided By: Patient - Alcohol History How Often Do You Have a Drink Containing Alcohol: Unable to Obtain (Positive for alcohol use however unable to obtain frequency) Medications and Allergies Allergies Allergy/AdvReac Type Severity Reaction Status Date / Time penicillin G Allergy Anaphylaxis Verified 04/30/18 11:47 Home Medications Medication Instructions Recorded Confirmed Type ferrous sulfate [iron] 325 mg PO DAILY 04/30/18 04/30/18 History [id number] acid 1 tab PO DAILY 04/30/18 04/30/18 History [PreNata] Exam Vital signs: Vital Signs 08/08/18 15:38 Respiratory Rate 19 Intake & Output 08/07/18 08/08/18 08/08/18 18:59 06:59 18:59 Weight 145 kg Narrative: GENERAL: Well-nourished, well-developed patient. SKIN: Warm and dry. HEAD: Normocephalic and atraumatic. EYES: No scleral icterus. No injection or drainage. ENT: No nasal drainage noted. Mucous membranes pink. Airway patent. NECK: Supple, trachea midline. No JVD. CARDIOVASCULAR: Regular rate and rhythm without murmurs, gallops, or rubs. RESPIRATORY: Breath sounds equal bilaterally. No accessory muscle use. BREASTS: Bilateral exam showed no masses , no retractions, no nipple discharge. ABDOMEN/GI: Abdomen soft, non-tender, bowel sounds present, no rebound, no guarding Gravid to 34 weeks size GENITOURINARY: External Genitalia: intact and normal in appearance Cervix: midline Dilatation: 2 Effacement: 20 Station: -3 Presentation: [] Membranes: [intact] Uterine Contractions: [variable, irregular] FHT's: Category: 1 Baseline: 140 Reactive: yes Variability: mod Decels: none EXTREMITIES: No cyanosis or edema. BACK: Nontender without obvious deformity. No CVA tenderness. NEUROLOGICAL: Awake and alert. Motor and sensory grossly within normal limits. Five out of 5 muscle strength in all muscle groups. Normal speech. Assessment and Plan - Diagnosis (1) Hypertensive crisis Code(s): I16.9 - Hypertensive crisis, unspecified Status: Acute (2) Left flank pain Code(s): R10.9 - Unspecified abdominal pain Status: Acute (3) Hematuria Code(s): R31.9 - Hematuria, unspecified Status: Acute (4) with 34 completed weeks gestation Code(s): Z3A.34 - 34 weeks gestation of Status: Acute (5) AMA (advanced maternal age) multigravida 35+ Code(s): O09.529 - Supervision of elderly multigravida, unspecified trimester Status: Acute - Plan 38-year-old AMA female at 34/5 weeks presenting with hypertensive crisis, left flank pain, hematuria. heart tracing reassuring. In latent phase of labor. Admit to labor and delivery. 1. Hypertensive crisis: Concern for preeclampsia based on proteinuria on urine dipstick and elevated blood pressures -Blood pressure monitoring -NST and monitoring of heart tones -P.o. Procardia, IV hydralazine PRN. Will follow established algorithm for hypertensive emergency -Start magnesium sulfate, betamethasone, IV ampicillin -Order CBC, CMP, 24-hour protein, and uric acid -Order BPP. Done at bedside by OB diagnostics. Score 4/8, JAMA 2.3 2. Left flank pain: Associate with hematuria May be secondary to hypertensive crisis versus preeclampsia versus renal stone -Order renal ultrasound 3. Hematuria -See above 4. Advanced maternal age Plan for vaginal delivery after BP better controlled. NEVAEH Renteria Discharge Plan - Discharge Disposition Patient Disposition: ED Admit(ED Internal Use Only) - Physicians Team ED Provider: Cristobal Renteria Primary Care Provider: NOT REQUIRED,
[2018-08-09] MEDS ORDERED: Morphine Sulfate PF Inj 5 MG/10 ML Ampul ONE (07:58)
[2018-08-09 09:19] LABS: Cord Arterial Blood HCO3 24.4
[2018-08-09] MEDS ORDERED: Simethicone 80 MG Chew Tablet PO PRN (09:52)
[2018-08-09] MEDS ORDERED: Oxytocin 30 Units/500ml Premix 30 UNITS/500 ML BAG IV.SIG ONE (09:52)
--- NOTE | 2018-08-09 09:56 | P.OP ---
- Preoperative Diagnosis (1) with 34 completed weeks gestation (2) Severe pre-eclampsia affecting fourth (3) IUGR (intrauterine growth restriction) affecting care of mother (4) Oligohydramnios in velasquez in third trimester (5) bradycardia, antepartum condition or complication - Postoperative Diagnosis (1) with 34 completed weeks gestation (2) IUGR (intrauterine growth restriction) affecting care of mother (3) Oligohydramnios in velasquez in third trimester (4) bradycardia, antepartum condition or complication (5) Severe pre-eclampsia affecting fourth Date of procedure: 08/09/18 (Patient is multiparous at 34-35 weeks with severe preeclampsia, fetus with IUGR and oligohydramnios and bradycardia with a decrease in the baseline heart rate from in the 140s to the 105-10 range) Procedure: Primary low transverse section Anesthesia: spinal Surgeon: Cristobal Renteria MD Chief Green Officer: Corina Mead R2 Estimated blood loss (mL): 500 IV fluids (mL): 1,000 Urine output (mL): 100 Operation and Findings: Patient was taken the operating room placed supine position operating table after adequate spinal anesthesia minutes she is prepped and draped for abdominal surgery Pfannenstiel incision was made lower abdomen carried to fascia sharply the fascia dissected off the rectus muscle and rectus split in the midline. The incision extended superiorly inferiorly. The bladder blade placed in the incision and the bladder reflected off the lower uterine segment placed on the bladder blade. A transverse hysterotomy was made extended bluntly bilaterally and a female was delivered at 8:56 AM 7/9 weight 3 pounds 9 ounces cord gas 7.31. Delayed cord clamping noted also a 2 tight nuchal cords noted around the baby. Baby handed to waiting floorhand for recess. Placenta manually extracted and sent to pathology. Uterus exteriorized hysterotomy closed running layer of 0 chromic followed by imbricating sutures same hemostasis was achieved with a stick tie. The bladder reapproximated with a running stitch of 2-0 Vicryl. The ovaries and tubes noted to be normal. Uterus elevated and the blood suctioned the cul-de-sac gutters and the uterus replaced the peritoneal cavity. The parietal peritoneum closed running layer 2-0 Vicryl. The rectus muscle reapproximated stick ties of chromic. And the fascia closed running layer 0 Vicryl. Subcutaneous tissues space closed with a running layer of 3-0 plain catgut suture and skin closed with 3-0 Monocryl subcuticular stitch with pressure dressing and Steri-Strips applied. Blood loss 500 cc of no complication sponge and needle correct x2 the patient recovery in stable condition.
[2018-08-09] MEDS ORDERED: Clindamycin 900 mg/NS Premix 900 MG/50 ML PIGGYBACK IV.SIG SCH (10:00)
[2018-08-09] MEDS ORDERED: Oxytocin 30 Units/500ml Premix 30 UNITS/500 ML BAG ONE (10:04)
[2018-08-09] MEDS ORDERED: Oxytocin 30 Units/500ml Premix 30 UNITS/500 ML BAG IV.SIG PRN (14:52)
[2018-08-09] MEDS: Mag Sulf/Water 40 gm/1000 ml 40 GM/1,000 ML BAG IV.CONT SCH (17:55)
[2018-08-10 07:15] LABS: Baso % (Auto) 0.1 % (0.0-2.0); Hemoglobin 8.8 gm/dL (11.6-15.3); Lymph # (Auto) 1.1 th/mm3 (1.0-4.8); Lymph % (Auto) 8.9 % (9.0-44.0); Mean Corpuscular HGB Conc 32.6 % (32.0-36.0); Mean Corpuscular Hemoglobin 28.4 pg (27.0-34.0); Mono # (Auto) 0.7 th/mm3 (0.0-0.9); Mono % (Auto) 5.9 % (0.0-8.0); Neut # (Auto) 10.4 th/mm3 (1.8-7.7); Neut % (Auto) 85.1 % (16.0-70.0); Platelet Count 185 th/mm3 (150-450); Red Blood Count 3.11 mil/mm3 (4.00-5.30); Red Cell Distribution Width 14.6 % (11.6-17.2); White Blood Count 12.2 th/mm3 (4.0-11.0)
[2018-08-10 08:03] LABS: Alanine Aminotransferase 18 U/L (10-53); Albumin 1.9 g/dL (3.4-5.0); Alkaline Phosphatase 101 U/L (45-117); Anion Gap 11 meq/L (5-15); Aspartate Aminotransferase 17 U/L (15-37); Blood Urea Nitrogen 8 mg/dL (7-18); Carbon Dioxide 24.4 meq/L (21.0-32.0); Chloride 101 meq/L (98-107); Glomerular Filtration Rate Greater Than 89 mL/min (>89); Glucose,Random 82 mg/dL (74-106); Potassium 3.6 meq/L (3.5-5.1); Sodium 136 meq/L (136-145); Total Protein 5.2 g/dL (6.4-8.2)
[2018-08-10 08:35] LABS: Calcium 6.1 mg/dL (8.5-10.1)
[2018-08-10] MEDS: Ferrous Sulfate 325 MG Tablet PO SCH (09:51)
[2018-08-10] MEDS: Senna/Docusate Sodium 8.6/50 MG Tablet PO PRN ×2 (09:51→22:37)
--- NOTE | 2018-08-10 10:10 | P.PNOB ---
Subjective Post op day: 1 Interval history: Postop day 1 from primary for nonreassuring tracing, IUGR, . Patient doing well this morning. Patient has been tolerating clear liquids and is very hungry and anticipating her breakfast. No nausea/vomiting. Patient has been laying in bed and is on magnesium. No chest pain/shortness of breath/ dizziness. No fever/chills. No calf tenderness. Objective Vital Signs/I&O: Vital Signs 08/09/18 10:12 08/09/18 10:16 08/09/18 10:17 Temperature Pulse Rate 81 Respiratory Rate 18 16 Blood Pressure 139/96 H 08/09/18 10:45 08/09/18 11:34 08/09/18 12:10 Temperature Pulse Rate 80 94 H 89 Respiratory Rate 19 17 Blood Pressure 137/95 H 148/89 H 08/09/18 12:16 08/09/18 12:20 08/09/18 13:25 Temperature Pulse Rate 93 H 85 102 H Respiratory Rate 18 Blood Pressure 155/99 H 144/85 H 08/09/18 13:45 08/09/18 13:49 08/09/18 13:50 Temperature Pulse Rate 80 86 Respiratory Rate 18 Blood Pressure 08/09/18 13:55 08/09/18 14:15 08/09/18 15:00 Temperature Pulse Rate 91 H 92 H 90 Respiratory Rate 18 Blood Pressure 123/82 08/09/18 15:10 08/09/18 15:56 08/09/18 16:01 Temperature 97.9 F Pulse Rate 89 99 H 92 H Respiratory Rate 18 Blood Pressure 137/82 137/87 08/09/18 17:00 08/09/18 18:03 08/09/18 18:05 Temperature Pulse Rate 103 H 102 H 101 H Respiratory Rate 18 18 Blood Pressure 139/92 H 140/92 H 08/09/18 19:25 08/09/18 19:27 08/09/18 21:00 Temperature 98.1 F Pulse Rate 89 93 H Respiratory Rate 16 Blood Pressure 138/82 122/76 08/09/18 22:40 08/09/18 23:00 08/09/18 23:33 Temperature 98.1 F Pulse Rate 92 H 91 H Respiratory Rate 16 Blood Pressure 133/84 08/10/18 00:20 08/10/18 00:51 08/10/18 02:35 Temperature Pulse Rate 84 81 Respiratory Rate 16 Blood Pressure 130/73 124/75 08/10/18 03:00 08/10/18 05:00 08/10/18 05:45 Temperature Pulse Rate 91 H 78 Respiratory Rate 16 16 Blood Pressure 133/84 126/80 08/10/18 05:55 08/10/18 06:55 08/10/18 07:30 Temperature 98.5 F Pulse Rate 79 87 76 Respiratory Rate 16 Blood Pressure 130/68 140/80 08/10/18 07:45 08/10/18 07:55 08/10/18 08:10 Temperature Pulse Rate 85 90 83 Respiratory Rate Blood Pressure 140/91 H 08/10/18 08:35 08/10/18 08:50 08/10/18 09:00 Temperature Pulse Rate 85 90 89 Respiratory Rate 16 Blood Pressure 135/92 H Intake & Output 08/09/18 08/10/18 08/10/18 18:59 06:59 18:59 Intake Total 1000 / 1000 1000 / 1000 Balance 1000 / 1000 1000 / 1000 Intake: IV 1000 / 1000 1000 / 1000 LR 1000 mL Inj 1,000 ML @ 100 1000 / 1000 mls/hr IV.CONT .Q10H IKE Rx#: [id number] Magnesium Sulfate/Water 40 gm/ 1000 / 1000 1000 ml Premix 40 gm In 1,000 ml @ 2 GM/HR 50 mls/hr IV.CONT Q24H IKE Rx#:[id number] Cleocin Inj 900 MG In NS Inj 0 / 0 100 ML @ 100 mls/hr IV.SIG Q8H IKE Rx#:[id number] Result Diagrams: 08/10/18 06:46 08/10/18 06:46 Objective Remarks: GENERAL: Well-nourished, well-developed patient. CARDIOVASCULAR: Regular rate and rhythm without murmurs, gallops, or rubs. RESPIRATORY: Breath sounds equal bilaterally. No accessory muscle use. ABDOMEN/GI: Abdomen soft, non-tender, bowel sounds present. Incision: Clean, dry and intact. Bandage dressing in place over incision. Fundus: Firm, non-tender at umbilicus. GENITOURINARY: Light to moderate bleeding. EXTREMITIES: No cyanosis or edema, non-tender, without signs of DVT. Medications and IVs: Active Medications Acetaminophen (Tylenol) 650 mg PO Q4H PRN PRN Reason: PAIN SCALE 1 TO 2 Ascorbic Acid (Vitamin C) 500 mg PO DAILY [facility] Calcium Gluconate (Calcium Gluconate Inj) 1 gm IV.PUSH PRN PRN PRN Reason: Magnesium toxicity Diphenhydramine HCl (Benadryl Inj) 50 mg IV.PUSH Q6H PRN PRN Reason: ITCHING Last Admin: 08/10/18 09:52 Dose: 50 mg Diphtheria/Pertussis/Tetanus Vacc (Boostrix Vaccine Inj) 0.5 ml IM .ONCE ONE Stop: 08/10/18 16:01 Ferrous Sulfate (Ferosul) 325 mg PO DAILY [facility] Last Admin: 08/10/18 09:51 Dose: 325 mg Hydralazine HCl (Apresoline Inj) 5 mg IV.PUSH NOW PRN PRN Reason: SEE LABEL COMMENTS Hydralazine HCl (Apresoline Inj) 10 mg IV.PUSH NOW PRN PRN Reason: SEE LABEL COMMENTS Lactated Ringer's (Lr 1000 Ml Inj) 1,000 mls @ 75 mls/hr IV.CONT .[id number] [facility] Last Admin: 08/10/18 09:29 Dose: Not Given Clindamycin Phosphate 600 mg/ (Sodium Chloride) 104 mls @ 200 mls/hr IV.SIG CARDIAC REHABILITATION SPECIALIST [facility] Stop: 08/12/18 07:59 Oxytocin (Pitocin 30 Units/Ns 500 Ml Premix) 30 units in 500 mls @ 100 mls/hr IV.SIG UNSCH PRN PRN Reason: Heavy bleeding Lactated Ringer's (Lr 1000 Ml Inj) 1,000 mls @ 100 mls/hr IV.CONT .Q10H [facility] Stop: 08/10/18 10:51 Last Admin: 08/10/18 05:08 Dose: 100 mls/hr Ibuprofen (Motrin) 800 mg PO Q8H PRN PRN Reason: cramping Last Admin: 08/10/18 03:06 Dose: 800 mg Ketorolac Tromethamine (Toradol Inj) 30 mg IM Q6H PRN PRN Reason: SEE LABEL COMMENTS Last Admin: 08/09/18 11:44 Dose: 30 mg Labetalol HCl (Trandate Inj) 20 mg IV.PUSH NOW PRN PRN Reason: SEE LABEL COMMENTS Labetalol HCl (Trandate Inj) 40 mg IV.PUSH NOW PRN PRN Reason: SEE LABEL COMMENTS Labetalol HCl (Trandate Inj) 80 mg IV.PUSH NOW PRN PRN Reason: SEE LABEL COMMENTS Measles/Mumps/Rubella Vaccine Live (M-M-R Ii Vaccine Inj) 0.5 ml SQ .ONCE ONE Stop: 08/10/18 16:01 Morphine Sulfate (Morphine Inj) 4 mg IV.PUSH Q3H PRN PRN Reason: PAIN 6-10;IF UNABLE TO TAKE PO Last Admin: 08/09/18 06:00 Dose: 4 mg Naloxone HCl (Narcan Inj) 0.4 mg IV.PUSH UNSCH PRN PRN Reason: SEE LABEL COMMENTS Nifedipine (Procardia Xl) 30 mg PO DAILY [facility] Last Admin: 08/10/18 09:51 Dose: 30 mg Ondansetron HCl (Zofran Inj) 4 mg IV.PUSH Q6H PRN PRN Reason: NAUSEA OR VOMITING Last Admin: 08/09/18 06:00 Dose: 4 mg Ondansetron HCl (Zofran Inj) 4 mg IV.PUSH Q6H PRN PRN Reason: NAUSEA OR VOMITING Oxycodone/Acetaminophen (Percocet 5/325 Mg) 1 tab PO Q4H PRN PRN Reason: PAIN SCALE 3 TO 5 Oxycodone/Acetaminophen (Percocet 5/325 Mg) 2 tab PO Q4H PRN PRN Reason: PAIN SCALE 6 TO 10 Last Admin: 08/10/18 07:44 Dose: 2 tab Senna/Docusate Sodium (Tamika-Colace) 2 tab PO Q12H PRN PRN Reason: CONSTIPATION Last Admin: 08/10/18 09:51 Dose: 2 tab Simethicone (Mylicon Chew) 80 mg PO QID PRN PRN Reason: FLATULENCE Sodium Chloride (Ns Flush) 2 ml IV.FLUSH BID [facility] Last Admin: 08/10/18 09:45 Dose: 2 ml Sodium Chloride (Ns Flush) 2 ml IV.FLUSH PRN PRN PRN Reason: FLUSH AFTER USING IV ACCESS Sodium Chloride (Ns Flush) 2 ml IV.FLUSH BID [facility] Last Admin: 08/10/18 09:44 Dose: Not Given Sodium Chloride (Ns Flush) 2 ml IV.FLUSH PRN PRN PRN Reason: FLUSH AFTER USING IV ACCESS Assessment and Plan - Diagnosis (1) AMA (advanced maternal age) multigravida 35+ Code(s): O09.529 - Supervision of elderly multigravida, unspecified trimester Status: Acute (2) delivery delivered Code(s): O82 - Encounter for delivery without indication Status: Acute (3) Pre-eclampsia affecting childbirth Code(s): O14.94 - Unspecified pre-eclampsia, complicating childbirth Status: Acute - Plan 38-year-old AMA female , delivered at 34 weeks 6 days via for nonreassuring tracing, preeclampsia, IUGR. Elevated blood pressure, preeclampsia prior to delivery -Mildly elevated BPs in the 140s over 90s this morning -Anticipate BPs may arise status post magnesium -Start Procardia 30 XL daily -Need to follow-up BPs -CBC, CMP normal -Asymptomatic - s/p Magnesium 24h post-op (08/09-08/10 @ 9:00AM) - start regular diet as tolerated POD#1 -Continue to encourage ambulation -H&H dropped from 12.2-8.8, asymptomatic -Start FE, vitamin C, Colace -Contraception: Discussed IUD placement as outpatient Discussed with Ob Hosp.
[2018-08-10] MEDS: Ascorbic Acid 500 MG Tablet PO SCH (12:39)
[2018-08-10] MEDS ORDERED: Measles/Mumps/Rubella Vaccine Inj 0.5 ML Vial SQ ONE (16:00)
[2018-08-10] MEDS ORDERED: Diphtheria/Tetanus/Pertussis Vaccine Inj 0.5 ML Syringe IM ONE (16:00)
[2018-08-11 06:29] LABS: Alanine Aminotransferase 16 U/L (10-53); Albumin 1.6 g/dL (3.4-5.0); Alkaline Phosphatase 96 U/L (45-117); Anion Gap 5 meq/L (5-15); Aspartate Aminotransferase 13 U/L (15-37); Blood Urea Nitrogen 12 mg/dL (7-18); Calcium 6.1 mg/dL (8.5-10.1); Chloride 110 meq/L (98-107); Glomerular Filtration Rate Greater Than 89 mL/min (>89); Glucose,Random 92 mg/dL (74-106); Potassium 4.2 meq/L (3.5-5.1); Sodium 141 meq/L (136-145)
--- NOTE | 2018-08-11 07:22 | P.PNOB ---
Subjective Post op day: 2 Interval history: Postoperative day number 2. AFVSS overnight. Pain controlled w/Motrin and Percocet. Incision not draining. Decreased lochia. She is feeding the baby via formula. Appetite good. No nausea or vomiting. Denies flatus. No bowel movement. Ambulating well. Denies calf pain, shortness of breath, or cough. Otherwise, she is doing well this morning and has no other complaints. Objective Vital Signs/I&O: Vital Signs 08/10/18 07:30 08/10/18 07:45 08/10/18 07:55 Temperature 98.5 F Pulse Rate 76 85 90 Respiratory Rate 16 Blood Pressure 140/80 08/10/18 08:10 08/10/18 08:35 08/10/18 08:50 Temperature Pulse Rate 83 85 90 Respiratory Rate Blood Pressure 140/91 H 08/10/18 09:00 08/10/18 09:50 08/10/18 10:00 Temperature Pulse Rate 89 99 H Respiratory Rate 16 15 Blood Pressure 135/92 H 139/86 08/10/18 11:03 08/10/18 11:14 08/10/18 12:00 Temperature 98.8 F Pulse Rate 75 97 H Respiratory Rate 18 Blood Pressure 146/94 H 146/92 H 08/10/18 13:00 08/10/18 14:55 08/10/18 16:00 Temperature 98.3 F Pulse Rate 90 79 83 Respiratory Rate 16 18 Blood Pressure 126/74 130/77 138/95 H 08/10/18 19:05 08/10/18 19:25 08/10/18 22:15 Temperature 98.6 F Pulse Rate 106 H 95 H Respiratory Rate 18 18 Blood Pressure 161/94 H 151/105 H 149/84 H 08/11/18 04:12 08/11/18 06:15 08/11/18 06:21 Temperature 99.2 F 99.2 F Pulse Rate 92 H 95 H Respiratory Rate 18 18 Blood Pressure 158/100 H 158/100 H Intake & Output 08/10/18 08/11/18 08/11/18 18:59 06:59 18:59 Intake Total Balance Intake: Intake (Blood Product) Amt Rho(D) Immune Globulin Unit [id number] Result Diagrams: 08/10/18 06:46 08/11/18 05:23 Objective Remarks: GENERAL: Well-nourished, well-developed patient. CARDIOVASCULAR: Regular rate and rhythm without murmurs, gallops, or rubs. RESPIRATORY: Breath sounds equal bilaterally. No accessory muscle use. ABDOMEN/GI: Abdomen soft, non-tender, + bowel sounds present. Incision: Clean, dry and intact. Fundus: Firm, non-tender at umbilicus. GENITOURINARY: Light to moderate bleeding. EXTREMITIES: No cyanosis. Trace edema. Medications and IVs: Active Medications Acetaminophen (Tylenol) 650 mg PO Q4H PRN PRN Reason: PAIN SCALE 1 TO 2 Ascorbic Acid (Vitamin C) 500 mg PO DAILY [facility] Last Admin: 08/10/18 12:39 Dose: 500 mg Calcium Gluconate (Calcium Gluconate Inj) 1 gm IV.PUSH PRN PRN PRN Reason: Magnesium toxicity Diphenhydramine HCl (Benadryl Inj) 50 mg IV.PUSH Q6H PRN PRN Reason: ITCHING Last Admin: 08/11/18 04:02 Dose: 50 mg Ferrous Sulfate (Ferosul) 325 mg PO DAILY [facility] Last Admin: 08/10/18 09:51 Dose: 325 mg Hydralazine HCl (Apresoline Inj) 5 mg IV.PUSH NOW PRN PRN Reason: SEE LABEL COMMENTS Hydralazine HCl (Apresoline Inj) 10 mg IV.PUSH NOW PRN PRN Reason: SEE LABEL COMMENTS Lactated Ringer's (Lr 1000 Ml Inj) 1,000 mls @ 75 mls/hr IV.CONT .[id number] [facility] Last Admin: 08/10/18 09:29 Dose: Not Given Clindamycin Phosphate 600 mg/ (Sodium Chloride) 104 mls @ 200 mls/hr IV.SIG [employer] [facility] Stop: 08/12/18 07:59 Oxytocin (Pitocin 30 Units/Ns 500 Ml Premix) 30 units in 500 mls @ 100 mls/hr IV.SIG UNSCH PRN PRN Reason: Heavy bleeding Ibuprofen (Motrin) 800 mg PO Q8H PRN PRN Reason: cramping Last Admin: 08/11/18 06:24 Dose: 800 mg Ketorolac Tromethamine (Toradol Inj) 30 mg IM Q6H PRN PRN Reason: SEE LABEL COMMENTS Last Admin: 08/10/18 12:08 Dose: 30 mg Labetalol HCl (Trandate Inj) 20 mg IV.PUSH NOW PRN PRN Reason: SEE LABEL COMMENTS Labetalol HCl (Trandate Inj) 40 mg IV.PUSH NOW PRN PRN Reason: SEE LABEL COMMENTS Labetalol HCl (Trandate Inj) 80 mg IV.PUSH NOW PRN PRN Reason: SEE LABEL COMMENTS Morphine Sulfate (Morphine Inj) 4 mg IV.PUSH Q3H PRN PRN Reason: PAIN 6-10;IF UNABLE TO TAKE PO Last Admin: 08/09/18 06:00 Dose: 4 mg Naloxone HCl (Narcan Inj) 0.4 mg IV.PUSH UNSCH PRN PRN Reason: SEE LABEL COMMENTS Nifedipine (Procardia Xl) 30 mg PO DAILY [facility] Last Admin: 08/10/18 09:51 Dose: 30 mg Ondansetron HCl (Zofran Inj) 4 mg IV.PUSH Q6H PRN PRN Reason: NAUSEA OR VOMITING Last Admin: 08/10/18 12:41 Dose: 4 mg Ondansetron HCl (Zofran Inj) 4 mg IV.PUSH Q6H PRN PRN Reason: NAUSEA OR VOMITING Oxycodone/Acetaminophen (Percocet 5/325 Mg) 1 tab PO Q4H PRN PRN Reason: PAIN SCALE 3 TO 5 Oxycodone/Acetaminophen (Percocet 5/325 Mg) 2 tab PO Q4H PRN PRN Reason: PAIN SCALE 6 TO 10 Last Admin: 08/11/18 04:01 Dose: 2 tab Senna/Docusate Sodium (Tamika-Colace) 2 tab PO Q12H PRN PRN Reason: CONSTIPATION Last Admin: 08/10/18 22:37 Dose: 2 tab Simethicone (Mylicon Chew) 80 mg PO QID PRN PRN Reason: FLATULENCE Sodium Chloride (Ns Flush) 2 ml IV.FLUSH BID [facility] Last Admin: 08/10/18 22:15 Dose: 2 ml Sodium Chloride (Ns Flush) 2 ml IV.FLUSH PRN PRN PRN Reason: FLUSH AFTER USING IV ACCESS Sodium Chloride (Ns Flush) 2 ml IV.FLUSH BID [facility] Last Admin: 08/10/18 22:00 Dose: 2 ml Sodium Chloride (Ns Flush) 2 ml IV.FLUSH PRN PRN PRN Reason: FLUSH AFTER USING IV ACCESS Assessment and Plan - Diagnosis (1) AMA (advanced maternal age) multigravida 35+ Code(s): O09.529 - Supervision of elderly multigravida, unspecified trimester Status: Acute (2) delivery delivered Code(s): O82 - Encounter for delivery without indication Status: Acute (3) Pre-eclampsia affecting childbirth Code(s): O14.94 - Unspecified pre-eclampsia, complicating childbirth Status: Acute (4) Hypertension Code(s): I10 - Essential (primary) hypertension Status: Acute - Plan 38-year-old AMA female , delivered at 34 weeks 6 days via for nonreassuring tracing, preeclampsia, IUGR. Elevated blood pressure, preeclampsia prior to delivery - BPs in the 140s-150s/90s overnight -Started Procardia 30 XL daily yesterday, continue. Add labetalol 20 mg IV once -Need to follow-up BPs outpatient - s/p Magnesium 24h post-op (08/09-08/10 @ 9:00AM). Doing well. No evidence of toxicity POD#2 -Continue to encourage ambulation -Contraception: Discussed IUD placement as outpatient - Post check in 6 weeks, incision check in 1 week DC likely tomorrow [facility] hospitalist
[2018-08-11] MEDS ORDERED: Labetalol HCl Inj 100 MG/20 ML Vial IV.PUSH ONE (08:00)
[2018-08-11] MEDS: Ferrous Sulfate 325 MG Tablet PO SCH (08:20)
[2018-08-11 09:03] LABS: Hematocrit 24.2 % (35.0-46.0)
[2018-08-11] MEDS: Ascorbic Acid 500 MG Tablet PO SCH (10:17)
[2018-08-11] MEDS: Senna/Docusate Sodium 8.6/50 MG Tablet PO PRN (21:20)
--- NOTE | 2018-08-11 23:00 | P.OBGPN ---
received call from RN- pt's BP elevated 160/90 after prolonged visit to nursery and pt rating pain now 7/10. She did receive second dose of Procardia. Pt is not .Plan to D/C IV Benadryl and change to PO also D/C Ibuprofen and change to Toradol- Load w. IV first 30 mg then to 10 mg PO Q6. RN made aware to call me back n 1 hour with repeat BP to ascertain if elevated BP may be secondary to pain.
[2018-08-12] MEDS ORDERED: Labetalol 100 MG Tablet PO STA (00:56)
--- NOTE | 2018-08-12 01:00 | P.OBGPN ---
Received call from RN-patient's blood pressure slightly improved but still elevated with some improvement of her pain. I have re-reviewed the patient's chart and discussed with the RN the plan is to add labetalol 100 mg twice daily to her regimen this might need to be titrated upwards, since review of her records BPs are now trending to what she initially presented to labor and delivery with. Continue to monitor BPs.
[2018-08-12] MEDS: Ketorolac 10 MG Tablet PO PRN ×3 (05:36→21:57)
[2018-08-12] MEDS: Senna/Docusate Sodium 8.6/50 MG Tablet PO PRN ×2 (09:12→21:56)
[2018-08-12] MEDS: Ferrous Sulfate 325 MG Tablet PO SCH (09:12)
[2018-08-12] MEDS: Ascorbic Acid 500 MG Tablet PO SCH (09:12)
--- NOTE | 2018-08-12 10:15 | P.PNOB ---
Subjective Interval history: Patient is a 38-year-old delivered at 34 weeks and 6 days. Patient is day 3 after . Patient states overnight she passed several quarter-sized clots, had worsening pain. She had been noted to be hypertensive overnight and p.o. labetalol had been added. Patient states today she feels dizzy, lightheaded when standing. Patient reports eating and drinking without any nausea or vomiting. Patient has had a bowel movement. Patient is walking without lower extremity pain or shortness of breath. Objective Vital Signs/I&O: Vital Signs 08/11/18 12:17 08/11/18 16:45 08/11/18 22:00 Temperature 98.9 F 98.7 F Pulse Rate 88 89 91 H Respiratory Rate 20 20 20 Blood Pressure 147/95 H 157/95 H 154/102 H 08/11/18 22:40 08/11/18 23:45 08/11/18 23:47 Temperature 98.3 F Pulse Rate 91 H Respiratory Rate 18 18 Blood Pressure 166/98 H 155/91 H 08/12/18 00:45 08/12/18 02:22 08/12/18 04:00 Temperature 98.4 F Pulse Rate 77 69 Respiratory Rate 18 Blood Pressure 142/105 H 123/72 135/95 H 08/12/18 08:00 Temperature 98.0 F Pulse Rate 83 Respiratory Rate 18 Blood Pressure 128/90 Result Diagrams: 08/11/18 08:45 08/11/18 05:23 Objective Remarks: GENERAL: Well-nourished, well-developed patient. CARDIOVASCULAR: Regular rate and rhythm without murmurs, gallops, or rubs. RESPIRATORY: Breath sounds equal bilaterally. No accessory muscle use. ABDOMEN/GI: Abdomen soft, non-tender, bowel sounds present. Incision: Clean, dry and intact. There is some overlying erythema below the incision. No drainage or significant swelling appreciated. Fundus: Firm, non-tender at umbilicus. GENITOURINARY: Light to moderate bleeding. EXTREMITIES: No cyanosis or edema, non-tender, without signs of DVT. Medications and IVs: Active Medications Acetaminophen (Tylenol) 650 mg PO Q4H PRN PRN Reason: PAIN SCALE 1 TO 2 Ascorbic Acid (Vitamin C) 500 mg PO DAILY [facility] Last Admin: 08/12/18 09:12 Dose: 500 mg Calcium Gluconate (Calcium Gluconate Inj) 1 gm IV.PUSH PRN PRN PRN Reason: Magnesium toxicity Diphenhydramine HCl (Benadryl) 50 mg PO Q6H PRN PRN Reason: itching Last Admin: 08/12/18 09:12 Dose: 50 mg Ferrous Sulfate (Ferosul) 325 mg PO DAILY [facility] Last Admin: 08/11/18 08:20 Dose: 325 mg Hydralazine HCl (Apresoline Inj) 5 mg IV.PUSH NOW PRN PRN Reason: SEE LABEL COMMENTS Hydralazine HCl (Apresoline Inj) 10 mg IV.PUSH NOW PRN PRN Reason: SEE LABEL COMMENTS Lactated Ringer's (Lr 1000 Ml Inj) 1,000 mls @ 75 mls/hr IV.CONT .[id number] [facility] Last Admin: 08/12/18 01:36 Dose: Not Given Oxytocin (Pitocin 30 Units/Ns 500 Ml Premix) 30 units in 500 mls @ 100 mls/hr IV.SIG UNSCH PRN PRN Reason: Heavy bleeding Ketorolac Tromethamine (Toradol Inj) 30 mg IM Q6H PRN PRN Reason: SEE LABEL COMMENTS Last Admin: 08/10/18 12:08 Dose: 30 mg Ketorolac Tromethamine (Toradol) 10 mg PO Q6H PRN PRN Reason: Acute Pain Stop: 08/16/18 05:59 Last Admin: 08/12/18 05:36 Dose: 10 mg Labetalol HCl (Trandate Inj) 20 mg IV.PUSH NOW PRN PRN Reason: SEE LABEL COMMENTS Labetalol HCl (Trandate Inj) 40 mg IV.PUSH NOW PRN PRN Reason: SEE LABEL COMMENTS Labetalol HCl (Trandate Inj) 80 mg IV.PUSH NOW PRN PRN Reason: SEE LABEL COMMENTS Labetalol HCl (Trandate) 100 mg PO BID [facility] Morphine Sulfate (Morphine Inj) 4 mg IV.PUSH Q3H PRN PRN Reason: PAIN 6-10;IF UNABLE TO TAKE PO Last Admin: 08/09/18 06:00 Dose: 4 mg Naloxone HCl (Narcan Inj) 0.4 mg IV.PUSH UNSCH PRN PRN Reason: SEE LABEL COMMENTS Nifedipine (Procardia Xl) 30 mg PO BID [facility] Last Admin: 08/12/18 09:12 Dose: 30 mg Ondansetron HCl (Zofran Inj) 4 mg IV.PUSH Q6H PRN PRN Reason: NAUSEA OR VOMITING Last Admin: 08/10/18 12:41 Dose: 4 mg Ondansetron HCl (Zofran Inj) 4 mg IV.PUSH Q6H PRN PRN Reason: NAUSEA OR VOMITING Last Admin: 08/12/18 04:19 Dose: 4 mg Oxycodone/Acetaminophen (Percocet 5/325 Mg) 1 tab PO Q4H PRN PRN Reason: PAIN SCALE 3 TO 5 Oxycodone/Acetaminophen (Percocet 5/325 Mg) 2 tab PO Q4H PRN PRN Reason: PAIN SCALE 6 TO 10 Last Admin: 08/12/18 09:10 Dose: 2 tab Senna/Docusate Sodium (Tamika-Colace) 2 tab PO Q12H PRN PRN Reason: CONSTIPATION Last Admin: 08/12/18 09:12 Dose: 2 tab Simethicone (Mylicon Chew) 80 mg PO QID PRN PRN Reason: FLATULENCE Sodium Chloride (Ns Flush) 2 ml IV.FLUSH BID [facility] Last Admin: 08/11/18 23:06 Dose: 2 ml Sodium Chloride (Ns Flush) 2 ml IV.FLUSH PRN PRN PRN Reason: FLUSH AFTER USING IV ACCESS Last Admin: 08/12/18 04:23 Dose: 2 ml Assessment and Plan - Diagnosis (1) AMA (advanced maternal age) multigravida 35+ Code(s): O09.529 - Supervision of elderly multigravida, unspecified trimester Status: Acute (2) delivery delivered Code(s): O82 - Encounter for delivery without indication Status: Acute (3) Pre-eclampsia affecting childbirth Code(s): O14.94 - Unspecified pre-eclampsia, complicating childbirth Status: Acute (4) Hypertension Code(s): I10 - Essential (primary) hypertension Status: Acute - Plan 38-year-old AMA female , delivered at 34 weeks 6 days via for nonreassuring tracing, preeclampsia, IUGR. Elevated blood pressure, preeclampsia prior to delivery - BPs up to 166/98 overnight, pressures have improved since p.o. labetalol was started. -Continue Procardia 30 XL daily labetalol 100 mg p.o. twice daily - s/p Magnesium 24h post-op (08/09-08/10 @ 9:00AM). Doing well. No evidence of toxicity POD#3 -Continue to encourage ambulation -Contraception: Discussed IUD placement as outpatient - Post check in 6 weeks, incision check in 1 week -Incision site with some mild erythema, ordering CBC with differential Dizziness -Reporting lightheadedness/dizziness overnight -Could be related to decrease in blood pressure, however will repeat CBC with differential to evaluate for worsening anemia DC possibly later today or tomorrow [facility] hospitalist
[2018-08-12 11:54] LABS: Baso % (Auto) 0.3 % (0.0-2.0); Eos # (Auto) 0.1 th/mm3 (0.0-0.4); Eos % (Auto) 1.4 % (0.0-4.0); Hemoglobin 8.5 gm/dL (11.6-15.3); Lymph # (Auto) 1.7 th/mm3 (1.0-4.8); Mean Corpuscular HGB Conc 32.6 % (32.0-36.0); Mean Corpuscular Hemoglobin 28.6 pg (27.0-34.0); Mean Corpuscular Volume 87.9 fL (80.0-100.0); Mean Platelet Volume 9.5 fL (7.0-11.0); Mono # (Auto) 0.5 th/mm3 (0.0-0.9); Mono % (Auto) 5.2 % (0.0-8.0); Neut # (Auto) 7.7 th/mm3 (1.8-7.7); Neut % (Auto) 76.1 % (16.0-70.0); Platelet Count 180 th/mm3 (150-450); Red Blood Count 2.96 mil/mm3 (4.00-5.30); Red Cell Distribution Width 15.2 % (11.6-17.2); White Blood Count 10.2 th/mm3 (4.0-11.0)
[2018-08-12] MEDS: Labetalol 100 MG Tablet PO SCH ×2 (12:03→21:56)
[2018-08-12] MEDS: Morphine Inj 4 MG/ML Vial IV.PUSH PRN ×2 (14:48→21:58)
[2018-08-13] MEDS: Morphine Inj 4 MG/ML Vial IV.PUSH PRN ×4 (03:55→22:21)
[2018-08-13] MEDS: Ketorolac 10 MG Tablet PO PRN (03:56)
--- NOTE | 2018-08-13 08:27 | P.PNOB ---
Subjective Post op day: 4 Interval history: Postoperative day number 4. AFVSS overnight. Pain controlled with toradol, percocet, and morphine. Incision not draining. Decreased lochia. Denies dysuria. No breast tenderness. She is feeding the baby via formula. Appetite good. No nausea or vomiting. +flatus. Ambulating well. Denies calf pain, shortness of breath, or cough. Otherwise, she is doing well this morning and has no other complaints. BP elevated overnight in 150s/100s. Tachycardic up to 108. Patient complains of itchiness at incision site. Objective Vital Signs/I&O: Vital Signs 08/12/18 12:35 08/12/18 13:10 08/12/18 16:39 Temperature Pulse Rate 114 H 100 H 101 H Respiratory Rate 20 20 18 Blood Pressure 162/102 H 142/92 H 130/85 08/12/18 21:58 08/12/18 22:56 08/13/18 02:37 Temperature 99.1 F Pulse Rate 95 H 102 H 108 H Respiratory Rate 22 20 18 Blood Pressure 158/109 H 144/92 H 147/96 H Result Diagrams: 08/12/18 10:35 08/11/18 05:23 Objective Remarks: GENERAL: Well-nourished, well-developed patient. CARDIOVASCULAR: Regular rate and rhythm without murmurs, gallops, or rubs. RESPIRATORY: Breath sounds equal bilaterally. No accessory muscle use. ABDOMEN/GI: Abdomen soft, non-tender, bowel sounds present. Incision: Clean, dry and intact. Some redness at incision site noted. Fundus: Firm, non-tender at umbilicus. GENITOURINARY: Light to moderate bleeding. EXTREMITIES: No cyanosis or edema, non-tender, without signs of DVT. Medications and IVs: Active Medications Acetaminophen (Tylenol) 650 mg PO Q4H PRN PRN Reason: PAIN SCALE 1 TO 2 Ascorbic Acid (Vitamin C) 500 mg PO DAILY [facility] Last Admin: 08/12/18 09:12 Dose: 500 mg Calcium Gluconate (Calcium Gluconate Inj) 1 gm IV.PUSH PRN PRN PRN Reason: Magnesium toxicity Diphenhydramine HCl (Benadryl) 50 mg PO Q6H PRN PRN Reason: itching Last Admin: 08/13/18 03:56 Dose: 50 mg Ferrous Sulfate (Ferosul) 325 mg PO DAILY [facility] Last Admin: 08/12/18 09:12 Dose: 325 mg Hydralazine HCl (Apresoline Inj) 10 mg IV.PUSH NOW PRN PRN Reason: SEE LABEL COMMENTS Lactated Ringer's (Lr 1000 Ml Inj) 1,000 mls @ 75 mls/hr IV.CONT .[id number] [facility] Last Admin: 08/13/18 02:29 Dose: Not Given Oxytocin (Pitocin 30 Units/Ns 500 Ml Premix) 30 units in 500 mls @ 100 mls/hr IV.SIG UNSCH PRN PRN Reason: Heavy bleeding Ketorolac Tromethamine (Toradol Inj) 30 mg IM Q6H PRN PRN Reason: SEE LABEL COMMENTS Last Admin: 08/10/18 12:08 Dose: 30 mg Ketorolac Tromethamine (Toradol) 10 mg PO Q6H PRN PRN Reason: Acute Pain Stop: 08/16/18 05:59 Last Admin: 08/13/18 03:56 Dose: 10 mg Labetalol HCl (Trandate Inj) 20 mg IV.PUSH NOW PRN PRN Reason: SEE LABEL COMMENTS Labetalol HCl (Trandate Inj) 40 mg IV.PUSH NOW PRN PRN Reason: SEE LABEL COMMENTS Labetalol HCl (Trandate Inj) 80 mg IV.PUSH NOW PRN PRN Reason: SEE LABEL COMMENTS Labetalol HCl (Trandate) 100 mg PO BID [facility] Last Admin: 08/12/18 21:56 Dose: 100 mg Morphine Sulfate (Morphine Inj) 4 mg IV.PUSH Q3H PRN PRN Reason: PAIN 6-10;IF UNABLE TO TAKE PO Last Admin: 08/09/18 06:00 Dose: 4 mg Morphine Sulfate (Morphine Inj) 4 mg IV.PUSH Q6H PRN PRN Reason: BREAKTHROUGH PAIN Last Admin: 08/13/18 03:55 Dose: 4 mg Naloxone HCl (Narcan Inj) 0.4 mg IV.PUSH UNSCH PRN PRN Reason: SEE LABEL COMMENTS Nifedipine (Procardia Xl) 30 mg PO BID [facility] Last Admin: 08/12/18 21:56 Dose: 30 mg Ondansetron HCl (Zofran Inj) 4 mg IV.PUSH Q6H PRN PRN Reason: NAUSEA OR VOMITING Last Admin: 08/10/18 12:41 Dose: 4 mg Ondansetron HCl (Zofran Inj) 4 mg IV.PUSH Q6H PRN PRN Reason: NAUSEA OR VOMITING Last Admin: 08/12/18 04:19 Dose: 4 mg Oxycodone/Acetaminophen (Percocet 5/325 Mg) 1 tab PO Q4H PRN PRN Reason: PAIN SCALE 3 TO 5 Oxycodone/Acetaminophen (Percocet 5/325 Mg) 2 tab PO Q4H PRN PRN Reason: PAIN SCALE 6 TO 10 Last Admin: 08/13/18 07:42 Dose: 2 tab Senna/Docusate Sodium (Tamika-Colace) 2 tab PO Q12H PRN PRN Reason: CONSTIPATION Last Admin: 08/12/18 21:56 Dose: 2 tab Simethicone (Mylicon Chew) 80 mg PO QID PRN PRN Reason: FLATULENCE Sodium Chloride (Ns Flush) 2 ml IV.FLUSH BID [facility] Last Admin: 08/12/18 21:55 Dose: 2 ml Sodium Chloride (Ns Flush) 2 ml IV.FLUSH PRN PRN PRN Reason: FLUSH AFTER USING IV ACCESS Last Admin: 08/13/18 03:57 Dose: 2 ml Assessment and Plan - Diagnosis (1) AMA (advanced maternal age) multigravida 35+ Code(s): O09.529 - Supervision of elderly multigravida, unspecified trimester Status: Acute (2) delivery delivered Code(s): O82 - Encounter for delivery without indication Status: Acute (3) Pre-eclampsia affecting childbirth Code(s): O14.94 - Unspecified pre-eclampsia, complicating childbirth Status: Acute (4) Hypertension Code(s): I10 - Essential (primary) hypertension Status: Acute - Plan 38-year-old AMA female , delivered at 34 weeks 6 days via for nonreassuring tracing, preeclampsia, IUGR. Elevated blood pressure, preeclampsia prior to delivery -Procardia 60 XL daily and increase labetalol to dose of 200 mg p.o. twice daily - s/p Magnesium 24h post-op (08/09-08/10 @ 9:00AM). Doing well. No evidence of toxicity POD#4 -Continue to encourage ambulation -Contraception: Discussed IUD placement as outpatient - Post check in 6 weeks, incision check in 1 week -Incision site with some mild erythema and itchiness, start benadryl and ciprofloxacin for coverage Dizziness -Reporting lightheadedness/dizziness overnight she thinks is related to blood pressure DC possibly later today or tomorrow [facility] OB hospitalist
[2018-08-13] MEDS ORDERED: Labetalol 200 MG Tablet PO SCH (09:00)
[2018-08-13] MEDS: Ascorbic Acid 500 MG Tablet PO SCH (09:23)
[2018-08-13] MEDS: Ferrous Sulfate 325 MG Tablet PO SCH (09:23)
[2018-08-13] MEDS ORDERED: Labetalol 100 MG Tablet PO ONE (15:00)
[2018-08-14] MEDS: Morphine Inj 4 MG/ML Vial IV.PUSH PRN (04:47)
[2018-08-14] MEDS: Ketorolac 10 MG Tablet PO PRN (08:34)
[2018-08-14] MEDS: Ferrous Sulfate 325 MG Tablet PO SCH (08:35)
[2018-08-14] MEDS: Ascorbic Acid 500 MG Tablet PO SCH (08:35)
--- NOTE | 2018-08-14 09:04 | P.PNOB ---
Subjective Post op day: 5 Interval history: Postoperative day number 5. AFVSS overnight. Pain controlled with toradol, percocet, and morphine. Incision not draining. Decreased lochia. Denies dysuria. No breast tenderness. She is feeding the baby via formula. Appetite good. No nausea or vomiting. +flatus. Ambulating well. Denies calf pain, shortness of breath, or cough. Otherwise, she is doing well this morning and has no other complaints. BP elevated overnight to 140s/100s. Received one dose of labetalol 300 mg last night. Complains of headache this morning, with photosensitivity and nausea. Objective Vital Signs/I&O: Vital Signs 08/13/18 12:00 08/13/18 13:51 08/13/18 16:00 Temperature 99.0 F 98.6 F Pulse Rate 109 H 89 Respiratory Rate 18 18 Blood Pressure 152/108 H 152/99 H 121/86 08/13/18 16:36 08/13/18 21:52 08/14/18 02:00 Temperature 98.3 F 98.3 F Pulse Rate 101 H 114 H 112 H Respiratory Rate 18 18 Blood Pressure 143/94 H 117/87 140/103 H 08/14/18 04:00 Temperature 98.3 F Pulse Rate 103 H Respiratory Rate 16 Blood Pressure 145/91 H Result Diagrams: 08/12/18 10:35 08/11/18 05:23 Objective Remarks: GENERAL: Well-nourished, well-developed patient. CARDIOVASCULAR: Regular rate and rhythm without murmurs, gallops, or rubs. RESPIRATORY: Breath sounds equal bilaterally. No accessory muscle use. ABDOMEN/GI: Abdomen soft, non-tender, bowel sounds present. Incision: Clean, dry and intact. Fundus: Firm, non-tender at umbilicus. GENITOURINARY: Light to moderate bleeding. EXTREMITIES: No cyanosis or edema, non-tender, without signs of DVT. Medications and IVs: Active Medications Acetaminophen (Tylenol) 650 mg PO Q4H PRN PRN Reason: PAIN SCALE 1 TO 2 Ascorbic Acid (Vitamin C) 500 mg PO DAILY [facility] Last Admin: 08/14/18 08:35 Dose: 500 mg Calcium Gluconate (Calcium Gluconate Inj) 1 gm IV.PUSH PRN PRN PRN Reason: Magnesium toxicity Diphenhydramine HCl (Benadryl) 25 mg PO Q8H [facility] Last Admin: 08/14/18 08:35 Dose: 25 mg Ferrous Sulfate (Ferosul) 325 mg PO DAILY [facility] Last Admin: 08/14/18 08:35 Dose: 325 mg Hydralazine HCl (Apresoline Inj) 10 mg IV.PUSH NOW PRN PRN Reason: SEE LABEL COMMENTS Lactated Ringer's (Lr 1000 Ml Inj) 1,000 mls @ 75 mls/hr IV.CONT .[id number] [facility] Last Admin: 08/13/18 02:29 Dose: Not Given Oxytocin (Pitocin 30 Units/Ns 500 Ml Premix) 30 units in 500 mls @ 100 mls/hr IV.SIG UNSCH PRN PRN Reason: Heavy bleeding Ketorolac Tromethamine (Toradol Inj) 30 mg IM Q6H PRN PRN Reason: SEE LABEL COMMENTS Last Admin: 08/10/18 12:08 Dose: 30 mg Ketorolac Tromethamine (Toradol) 10 mg PO Q6H PRN PRN Reason: Acute Pain Stop: 08/16/18 05:59 Last Admin: 08/14/18 08:34 Dose: 10 mg Labetalol HCl (Trandate Inj) 20 mg IV.PUSH NOW PRN PRN Reason: SEE LABEL COMMENTS Labetalol HCl (Trandate Inj) 40 mg IV.PUSH NOW PRN PRN Reason: SEE LABEL COMMENTS Labetalol HCl (Trandate Inj) 80 mg IV.PUSH NOW PRN PRN Reason: SEE LABEL COMMENTS Labetalol HCl (Trandate) 300 mg PO BID [facility] Last Admin: 08/14/18 08:35 Dose: 300 mg Morphine Sulfate (Morphine Inj) 4 mg IV.PUSH Q3H PRN PRN Reason: PAIN 6-10;IF UNABLE TO TAKE PO Last Admin: 08/09/18 06:00 Dose: 4 mg Morphine Sulfate (Morphine Inj) 4 mg IV.PUSH Q6H PRN PRN Reason: BREAKTHROUGH PAIN Last Admin: 08/14/18 04:47 Dose: 4 mg Naloxone HCl (Narcan Inj) 0.4 mg IV.PUSH UNSCH PRN PRN Reason: SEE LABEL COMMENTS Nifedipine (Procardia Xl) 60 mg PO DAILY [facility] Last Admin: 08/14/18 08:35 Dose: 60 mg Ondansetron HCl (Zofran Inj) 4 mg IV.PUSH Q6H PRN PRN Reason: NAUSEA OR VOMITING Last Admin: 08/10/18 12:41 Dose: 4 mg Ondansetron HCl (Zofran Inj) 4 mg IV.PUSH Q6H PRN PRN Reason: NAUSEA OR VOMITING Last Admin: 08/12/18 04:19 Dose: 4 mg Oxycodone/Acetaminophen (Percocet 5/325 Mg) 1 tab PO Q4H PRN PRN Reason: PAIN SCALE 3 TO 5 Oxycodone/Acetaminophen (Percocet 5/325 Mg) 2 tab PO Q4H PRN PRN Reason: PAIN SCALE 6 TO 10 Last Admin: 08/14/18 06:43 Dose: 2 tab Senna/Docusate Sodium (Tamika-Colace) 2 tab PO Q12H PRN PRN Reason: CONSTIPATION Last Admin: 08/12/18 21:56 Dose: 2 tab Simethicone (Mylicon Chew) 80 mg PO QID PRN PRN Reason: FLATULENCE Sodium Chloride (Ns Flush) 2 ml IV.FLUSH BID IKE Last Admin: 08/13/18 22:22 Dose: 2 ml Sodium Chloride (Ns Flush) 2 ml IV.FLUSH PRN PRN PRN Reason: FLUSH AFTER USING IV ACCESS Last Admin: 08/13/18 03:57 Dose: 2 ml Assessment and Plan - Diagnosis (1) AMA (advanced maternal age) multigravida 35+ Code(s): O09.529 - Supervision of elderly multigravida, unspecified trimester Status: Acute (2) delivery delivered Code(s): O82 - Encounter for delivery without indication Status: Acute (3) Pre-eclampsia affecting childbirth Code(s): O14.94 - Unspecified pre-eclampsia, complicating childbirth Status: Acute (4) Hypertension Code(s): I10 - Essential (primary) hypertension Status: Acute (5) Headache Code(s): R51 - Headache Status: Acute - Plan 38-year-old AMA female , delivered at 34 weeks 6 days via for nonreassuring tracing, preeclampsia, IUGR. Elevated blood pressure, preeclampsia prior to delivery - Continue Procardia 60 XL daily and labetalol 300 mg p.o. twice daily - Monitor BP today and plan for dc later this afternoon POD#4 -Continue to encourage ambulation -Contraception: Discussed IUD placement as outpatient - Post check in 6 weeks, incision check in 1 week -Incision site with some mild erythema and itchiness, likely allergy. On benadryl and ciprofloxacin (for coverage) Headache, likely migraine - Motrin PRN DC today [facility] hospitalist - Attending Attestation The exam, history, and the medical decision-making described in the above note were completed with the assistance of the resident physician. I reviewed and agree with the findings presented. I attest that I had a [id number] encounter with the patient on the same day, and personally performed and documented my assessment and findings in the medical record. Pt seen and examined. BP140/103 elevated at 2 AM. BP meds changed yesterday. Will monitor BP today. Poss home later.
== END 2018-08-14 17:25 | disposition home or self-care (01) | DRG 787 ==
LOC: HOBED 15:03 → H2E 15:03 → H1EA 08-10 15:51
PROVIDERS: ADMIT Obstetrics & Gynecology Maternal & Fetal Medicine; ATTEND Obstetrics & Gynecology Maternal & Fetal Medicine
CPT/HCPCS: 36415; 51702; 59025; 76775; 76819; 76937; 80053; 80307; 81001; 82805; 84550; 85014; 85018; 85025; 85461; 86850; 86900; 86901; 87086; 88307; 90384; 90715; 99285; G0481; G0483; J0131; J0360; J0702; J1200; J1885; J2270; J2274; J2405; J2590; J2790; J3475; J7120; Q0163